=== PATIENT | female | born 1955 | race Caucasian/White ===

== ENCOUNTER 2019-07-15 08:53 | Day surgery (SDC) | payer MEDICARE, SELFPAY ==
[2019-07-15] MEDS: PROPARACAINE 0.5% OPHTH SOL 2 DROPS EYE-OP (09:44)
[2019-07-15] MEDS: CATARACT EYE COMPOUND (10 DROPS/SYRINGE) 3 DROPS EYE-OP (09:49)
[2019-07-15 09:53] VITALS: BP 132/81; PULSE 55; RESP 16; TEMP 36.6; O2SAT 98; BMI 24.7
--- NOTE | 2019-07-15 10:10 | PM.PREOP ---
Pre-operative Note Interval Note History & Physical reviewed/Exam performed by Physician: No Changes to H&P: No
--- NOTE | 2019-07-15 10:10 | PM.OP.1 ---
Operative Date/Time/Diagnoses Pre-op diagnosis: Nuclear cataract right eye Procedure & Clinicians Procedure: Cataract Surgery Same procedure as scheduled: Yes Surgeon: Mariusz Robert Anesthesia Type: MAC +/- and Sedation Operative Notes Procedure in detail: Patient brought to the operating suite. Tetracaine drops placed in the right eye. The marking instrument was used to liz the vertical and horizontal meridians. Patient was prepped and draped in sterile manner. Wire lid speculum was placed in the eye. Betadine drops were placed on the eye. This was irrigated. Lidocaine jelly was placed on the eye. A paracentesis port was created with a side-port blade. 0.1 mL 1% preservative free lidocaine was injected into the anterior chamber. The anterior chamber was deepened with viscoelastic. 2.6 mm keratome was used to create a temporal clear corneal incision. Cystotome and Utrata forceps were used to create continuous tear capsulorrhexis. Balanced salt solution was used to hydro dissect the nucleus. The phacoemulsification handpiece was inserted and the nucleus was removed using the stop and chop technique. The irrigation aspiration handpiece was inserted and the remaining cortex was removed. Anterior chamber was deepened with viscoelastic. An Singh [id number] intraocular lens with a power of 25.5 was injected into the capsular bag. Irrigation aspiration handpiece was inserted and the remaining viscoelastic was removed. The lens was rotated to the 180 degree meridian. Incision was hydrated with balanced salt solution and found to be leak free with pressure with Weck-Fabiola sponges. 0.1 mL Vigamox injected anterior chamber. 0.3 mL Kenalog 10 mg was injected subconjunctivally. Lid speculum was removed. The patient left the operating room in excellent condition. Complications: none Post-operative Condition: stable Disposition: same day surgery
[2019-07-15] MEDS: MOXIFLOXACIN INJ 5 MG/ML VIAL EYE-OP (10:22)
[2019-07-15] MEDS: TRIAMCINOLONE 50 MG/5 ML VIAL INJ (10:22)
[2019-07-15] MEDS: LIDOCAINE JELLY 2% 5 ML 1 APPLIC TOP (10:23)
[2019-07-15] MEDS: PHENYLEPHRINE/LIDOCAINE VIAL (OR) 0.2 ML EYE-OP (10:23)
[2019-07-15] MEDS: BALANCED SALT IRRIG SOLN NO.2 500 ML, EPINEPHrine 1 MG IRR (10:23)
[2019-07-15] MEDS: CHONDROIDTIN/SOD HYALURONATE 1.05 ML SYRINGE INTRAOCULA (10:23)
[2019-07-15] MEDS: TETRACAINE 0.5% OPHTH DROPS 4 ML 2 DROPS EYE-OP (10:23)
[2019-07-15 11:45] VITALS: BP 106/69; PULSE 62; RESP 16; TEMP 36.6; O2SAT 99
== END 2019-07-15 12:00 | disposition home or self-care (01) ==
LOC: OR 08:56
PROVIDERS: Visit Provider Ophthalmology
PROC: (CPT 66984; principal; 2019-07-15 10:45)
DX: H25.11 Age-related nuclear cataract, right eye (principal)
CPT/HCPCS: 66984; J0171; J2250; J3010; J3301; V2787

== ENCOUNTER 2019-07-29 08:26 | Day surgery (SDC) | payer MEDICARE, SELFPAY ==
[2019-07-29 09:21] VITALS: BMI 25.9
[2019-07-29 09:24] VITALS: BP 132/80; PULSE 53; RESP 15; TEMP 36.1; O2SAT 99
[2019-07-29] MEDS: PROPARACAINE 0.5% OPHTH SOL 2 DROPS EYE-OP (09:31)
[2019-07-29] MEDS: CATARACT EYE COMPOUND (10 DROPS/SYRINGE) 3 DROPS EYE-OP (09:31)
--- NOTE | 2019-07-29 09:58 | PM.PREOP ---
Pre-operative Note Interval Note History & Physical reviewed/Exam performed by Physician: No Changes to H&P: No
--- NOTE | 2019-07-29 09:58 | PM.OP.1 ---
Operative Date/Time/Diagnoses Pre-op diagnosis: Nuclear Cataract Left eye Post-op diagnosis: same Procedure & Clinicians Surgeon: Mariusz Robert Anesthesia Type: MAC +/- and Sedation Operative Notes Procedure in detail: Patient brought to the operating suite. Tetracaine drops placed in the left eye. Patient was prepped and draped in sterile manner. Wire lid speculum was placed in the eye. Betadine drops were placed on the eye. This was irrigated. Lidocaine jelly was placed on the eye. A paracentesis port was created with a side-port blade. 0.1 mL 1% preservative free lidocaine was injected into the anterior chamber. The anterior chamber was deepened with viscoelastic. 2.6 mm keratome was used to create a temporal clear corneal incision. Cystotome and Utrata forceps were used to create continuous tear capsulorrhexis. Balanced salt solution was used to hydro dissect the nucleus. The phacoemulsification handpiece was inserted and the nucleus was removed using the stop and chop technique. The irrigation aspiration handpiece was inserted and the remaining cortex was removed. Anterior chamber was deepened with viscoelastic. An Singh ZCB00 intraocular lens with a power of 25.0 was injected into the capsular bag. Irrigation aspiration handpiece was inserted and the remaining viscoelastic was removed. Incision was hydrated with balanced salt solution and found to be leak free with pressure with Weck-Fabiola sponges. 0.1 mL Vigamox injected anterior chamber. 0.3 mL Kenalog 10 mg was injected subconjunctivally. Lid speculum was removed. The patient left the operating room in excellent condition. Complications: none Post-operative Condition: stable Disposition: same day surgery
[2019-07-29] MEDS: PHENYLEPHRINE/LIDOCAINE VIAL (OR) 0.2 ML EYE-OP (10:10)
[2019-07-29] MEDS: TRIAMCINOLONE 50 MG/5 ML VIAL INJ (10:10)
[2019-07-29] MEDS: MOXIFLOXACIN 0.5% OPHTH 60 DROPS/BOTTLE DROPS EYE-BOTH (10:11)
[2019-07-29] MEDS: LIDOCAINE JELLY 2% 5 ML 1 APPLIC TOP (10:11)
[2019-07-29] MEDS: BALANCED SALT IRRIG SOLN NO.2 500 ML, EPINEPHrine 1 MG IRR (10:11)
[2019-07-29] MEDS: TETRACAINE 0.5% OPHTH DROPS 4 ML 2 DROPS EYE-OP (10:11)
[2019-07-29] MEDS: CHONDROIDTIN/SOD HYALURONATE 1.05 ML SYRINGE INTRAOCULA (10:11)
[2019-07-29 10:31] VITALS: BP 110/70; PULSE 55; RESP 14; TEMP 36.3; O2SAT 98
== END 2019-07-29 10:44 ==
LOC: OR 08:28
PROVIDERS: Visit Provider Ophthalmology
PROC: (CPT 66984; principal; 2019-07-29 10:15)
DX: H25.12 Age-related nuclear cataract, left eye (principal)
CPT/HCPCS: 66984; J0171; J2250; J3010; J3301

== ENCOUNTER → 2020-04-01 14:08 | Outpatient (CLI) | payer MEDICARE, SELFPAY | PROVIDERS: PCP Registered Nurse; Referring Provider Registered Nurse; Visit Provider Registered Nurse | DX: M85.88 Other specified disorders of bone density and structure, other site (principal); Z78.0 Asymptomatic menopausal state; Z82.62 Family history of osteoporosis | CPT/HCPCS: 77080 ==

== ENCOUNTER → 2020-07-02 09:36 | Outpatient (CLI) | payer MEDICARE, SELFPAY ==
--- NOTE | 2020-07-02 | DI.MRI.S_ITS ---
PROCEDURE: MR SHOULDER RT WO CON INDICATIONS: Unspecified rotator cuff tear or rupture TECHNIQUE: Noncontrast oblique coronal T2 fast spin echo with fat saturation, oblique sagittal T1 spin echo and T2 fast spin echo with fat saturation, axial T1 spin echo and T2 fast spin echo with fat saturation through the shoulder. COMPARISON: None. FINDINGS: Image quality: Excellent. Rotator cuff: Mild supraspinatus tendinopathy and low-grade bursal surface fraying. Interstitial tearing of the infraspinatus at the musculotendinous junction, and there is mild bursal surface fraying. Teres minor appears intact. Subscapularis tendon appears grossly intact. Isolated atrophy of the teres minor muscle is seen. No definite focal signal change present within the quadrilateral space. Bones and bursae: No bone marrow contusions or fractures. Moderate hypertrophic acromioclavicular joint degeneration. Acromion demonstrates conventional anatomy, without an os acromiale. Severe subacromial-subdeltoid bursitis. Large joint effusion is present. There are low signal foci present along the anterior cortex of the surgical neck of the humerus measuring approximately 1.2 x 0.8 cm on axial image 16/6. Capsule and soft tissues: Labrum: Ill-defined chronic appearing tear or advanced degenerative fraying of the anterior and posterior labrum, and there are small paralabral cysts adjacent to the anterior glenoid. Incidentally noted sublabral foramen. Long head of the biceps tendon intact. The rotator interval appears normal, without fibrosis. Coracohumeral ligament intact. IMPRESSION: Mild supraspinatus tendinopathy and low-grade bursal surface fraying Infraspinatus interstitial tearing, and mild bursal surface fraying. No full-thickness rotator cuff tear identified. Isolated atrophy of the teres minor muscle, of unclear etiology. Severe subacromial-subdeltoid bursitis. Low signal intensity foci involving the anterior subacromial-subdeltoid bursa, which could represent loose bodies versus calcific bursitis. Further evaluation with dedicated radiographs is recommended. Ill-defined, macerated appearing tear of the anterior and posterior labrum, with small paralabral cysts adjacent to the anterior inferior glenoid. This finding probably chronic/degenerative. Dictated by: Ender Araujo M.D. on 07/02/2020 at 11:30 Approved by: Ender Araujo M.D. on 07/02/2020 at 12:00
== END ==
PROVIDERS: PCP Registered Nurse; Referring Provider Registered Nurse; Visit Provider Registered Nurse
DX: M75.111 Incomplete rotator cuff tear or rupture of right shoulder, not specified as traumatic (principal); S43.491A Other sprain of right shoulder joint, initial encounter; M19.011 Primary osteoarthritis, right shoulder; M25.411 Effusion, right shoulder
CPT/HCPCS: 73221

== ENCOUNTER → 2022-07-20 11:27 | Outpatient (CLI) | payer MEDICARE, SELFPAY | PROVIDERS: PCP Registered Nurse; Referring Provider Registered Nurse; Visit Provider Registered Nurse | DX: M81.0 Age-related osteoporosis without current pathological fracture (principal); Z78.0 Asymptomatic menopausal state | CPT/HCPCS: 77080 ==

== ENCOUNTER 2022-08-28 21:54 | Emergency (ER) | payer MEDICARE, SELFPAY ==
[2022-08-28] VITALS (11 sets, daily range): BP systolic 119–146; BP diastolic 63–75; PULSE 60–78; RESP 15–17; TEMP 36.6; O2SAT 97–100; BMI 23.9
--- NOTE | 2022-08-28 22:09 | DI.RAD.S_ITS ---
PROCEDURE: XR CHEST 1V INDICATIONS: not feeling right TECHNIQUE: One view of the chest was acquired. COMPARISON: None. FINDINGS: Surgical changes and devices: None. Lungs and pleura: Lungs are clear. No pleural effusions or pneumothorax. Mediastinum: Mediastinal contours appear normal. Heart size is normal. Bones and chest wall: No suspicious bony lesions. Overlying soft tissues appear unremarkable. IMPRESSION: 1. No acute cardiopulmonary disease. Dictated by: Joaquín Barnes M.D. on 08/29/2022 at 0:23 Approved by: Joaquín Barnes M.D. on 08/29/2022 at 0:23
[2022-08-28 22:18] LABS: Add Manual Diff / Slide Review NO; Basophils Absolute Auto 100 /uL (0-100); Basophils Percent Auto 1.1 % (0-2); Eosinophils Absolute Auto 200 /uL (0-450); Hematocrit 36.5 % (36-46); Hemoglobin 12.5 g/dL (12.0-16.0); Lymphocytes Absolute Auto 1100 /uL (1100-4500); Lymphocytes Percent Auto 19.5 % (25-40); Mean Corpuscular HGB Conc 34.3 % (30-36); Mean Corpuscular Hemoglobin 30.7 PG (26-34); Mean Corpuscular Volume 89.8 fL (80-100); Monocytes Absolute Auto 300 /uL (0-900); Monocytes Percent Auto 6.2 % (3-14); Neutrophils Absolute Auto 3900 /uL (1500-7000); Neutrophils Percent Auto 70.2 % (50-75); Platelet Count 176 X10^3/uL (150-400); Red Blood Cell Count 4.07 X10^6/uL (4.0-5.2); Red Cell Distribution Width 13.4 % (11.6-14.8); White Blood Cell Count 5.5 X10^3/uL (4.5-11.0)
[2022-08-28] MEDS: SODIUM CHLORIDE 0.9% 1,000 ML 200 ML IV (22:18)
[2022-08-28 22:23] LABS: Lactate (Lactic Acid) 1.5 mmol/L (0.7-2.1)
[2022-08-28 22:24] LABS: Alanine Aminotransferase 23 IU/L (<35); Albumin Globulin Ratio 1.4 (1.0-2.8); Alkaline Phosphatase 57 U/L (38-126); Aspartate Aminotransferase 25 IU/L (14-36); BUN Creatinine Ratio 17.4 (6-22); Bilirubin Total 0.4 mg/dL (0.2-1.3); Blood Urea Nitrogen 15 mg/dL (7-17); Calcium 9.1 mg/dL (8.4-10.2); Carbon Dioxide 28 mmol/L (22-32); Chloride 105 mmol/L (98-107); Creatine Kinase 85 U/L (30-135); Estimated Glomerular Filt Rate > 60 mL/min (>60); Globulin 2.8 g/dL (1.7-4.1); Glucose 126 mg/dL (80-110); HEMOLYSIS < 15 (0-50); Potassium 3.6 mmol/L (3.4-5.1); Sodium 139 mmol/L (137-145); Total Protein 6.8 g/dL (6.3-8.2)
[2022-08-28 22:36] LABS: Troponin I < 0.012 ng/mL (0.01-0.034)
[2022-08-28 22:40] LABS: Procalcitonin < 0.03 ng/mL (<0.5)
--- NOTE | 2022-08-28 22:43 | DI.CT.S_ITS ---
PROCEDURE: CT ANGIO HEAD AND NECK INDICATIONS: dizzy resolved with vision changes TECHNIQUE: Pre-contrast 4.5 mm thick sections acquired from the foramen magnum to the vertex. After the administration of intravenous contrast, 1 mm thick sections acquired from the aortic arch through the [place] of [place]. Post-contrast 4.5 mm thick sections then re-acquired from the foramen magnum to the vertex. 3-dimensional pdtrytf-lcdheddnt-bmfotoqidn (MIP) and/or volume rendering reformats were acquired of the central intracranial vasculature and neck separately. For radiation dose reduction, the following was used: automated exposure control, adjustment of mA and/or kV according to patient size. COMPARISON: None. FINDINGS: Image quality: Excellent. BRAIN: CSF spaces: Basal cisterns are patent. No extra-axial fluid collections. Ventricles are normal in size and shape. Brain: No intracranial hemorrhage, mass, or mass effect. Scales-white matter interface appears preserved. No abnormal intracranial enhancement. Skull and face: Calvarium and facial bones appear intact, without suspicious lesions. Orbits appear normal. Sinuses: Sinuses and mastoids are clear. HEAD CT ANGIOGRAPHY: Anterior circulation: Intracranial internal carotid arteries are normal in size and appear patent bilaterally. There is mild atherosclerotic calcification along the cavernous segments of the internal carotid arteries. The paired anterior cerebral arteries appear patent bilaterally. The anterior communicating artery also appears patent. The middle cerebral arteries appear patent bilaterally. No high-grade stenosis, occlusion, or filling defects. No cerebral aneurysms identified. Posterior circulation: Visualized portions of the vertebral arteries demonstrate normal caliber, and join to form a patent basilar artery. The posterior cerebral arteries appears patent bilaterally. No high-grade stenosis, occlusion, or filling defects. No cerebral aneurysms identified. NECK CT ANGIOGRAPHY: Carotid system: The great vessels demonstrate a conventional anatomy as they arise from the aortic arch. The origins of the common carotid arteries appear patent. The common carotid arteries demonstrate normal caliber and courses. The bifurcation regions are both widely patent. The internal carotid arteries demonstrate normal calibers and courses. Posterior circulation: The origins of the vertebral arteries both appear patent. The more superior extracranial portions of both vertebral arteries also demonstrate normal courses and calibers. They join to form a patent basilar artery. Soft tissues: Visualized neck soft tissues demonstrate no suspicious abnormalities. Bones: No suspicious bony lesions. Visualized cervical spine demonstrates straightening of the cervical lordosis. There is mild degenerative disc disease and facet joint arthropathy. IMPRESSION: 1. No acute intracranial abnormality. 2. No high-grade stenosis or occlusion of the central intracranial arteries. 3. No high-grade stenosis or occlusion of the head and neck arteries. Any quantitative measurements of stenosis were performed using NASCET criteria. Dictated by: Joaquín Barnes M.D. on 08/29/2022 at 0:19 Approved by: Joaquín Barnes M.D. on 08/29/2022 at 0:23
--- NOTE | 2022-08-28 22:43 | ED.DIZZY ---
HPI - Dizziness General Chief Complaint: Dizziness Stated Complaint: Feel funny Time Seen by Provider: 08/28/22 22:09 Source: patient and EMS Mode of arrival: EMS History of Present Illness HPI Narrative: Patient is a healthy 67-year-old female who reports feeling well and dizzy. She said she was sitting at dinner she felt like she was kind of out of it and numb all over she felt like she was having some floaters and both of her eyes and then the headache came on. She got up from the table and went to lay down on the couch. She was feeling a little bit dizzy she did not pass out. She denies any chest pain or palpitations. She says this happened to her 3 other times in her life she was never evaluated for before. EMS reports that she was mildly hypotensive when she arrived. She said she was in her normal state of health earlier this morning and this evening. She denies fever chills no nausea vomiting or any other symptoms. She denies any weakness or loss of vision. She does have a mild headache now but not bad. She says is not typical for her migraines. Overall feeling significantly better. Patient admits to drinking alcohol but not this evening. Related Data Home Medications Medication Instructions Recorded Confirmed escitalopram oxalate 10 mg tablet 10 mg PO DAILY 07/15/19 07/29/19 Allergies Allergy/AdvReac Type Severity Reaction Status Date / Time Latex, Natural Rubber Allergy Intermediate Rash Verified 07/29/19 09:12 codeine AdvReac Intermediate Nausea Verified 07/29/19 09:12 Review of Systems Review of Systems Narrative: GENERAL: Denies chills, fatigue, malaise, fever, sweats, travel HEENT: Denies sinus pain, ear pain, sore throat, difficulty swallowing, neck pain RESPIRATORY: Denies dyspnea, cough, wheezing, hemoptysis, sputum. CARDIOVASCULAR: Denies chest pain, palpitations, orthopnea, edema GASTROINTESTINAL: Denies nausea, vomiting, abdominal pain, diarrhea, constipation, melena. : Denies dysuria, frequency, incontinence, hematuria, urinary retention, flank pain. MUSCULOSKELETAL: Denies weakness, joint pain, or bony pain SKIN: No rash, no erythema, no pruritus NEUROLOGIC: See HPI PSYCHIATRIC: No concerning psychosocial issues. 12 point review of systems is negative except for those stated above and HPI Patient History Social History household members: spouse Smoking Status: Never smoker Smoking Status: Never smoker alcohol intake frequency: 0-2 drinks per day Alcohol type: wine Substance Use Type: does not use Exam Initial Vital Signs Initial Vital Signs: Vital Signs Pulse Rate 63 08/28/22 22:02 Pulse Oximetry 98 08/28/22 22:02 Oxygen Delivery Method 08/28/22 22:02 GENERAL: Alert pleasant 67-year-old female no acute distress and in no acute distress. HEENT: Head atraumatic,EOMI, pupils reactive, face symmetric, no peripheral visual loss moist mucous membranes CARDIOVASCULAR: Regular rate and rhythm without murmurs, rubs or gallops. RESPIRATORY: Breath sounds equal bilaterally, no wheezes rales or rhonchi. ABDOMEN: Soft, nontender. Normoactive bowel sounds all 4 quadrants. No guarding or rebound. EXTREMITIES: Normal range of motion, no clubbing or edema. Neurovascularly intact NEUROLOGICAL: Alert and oriented x4.Normal gait and speech. Cranial nerves II through XII grossly intact. Good znhnpy-[id number], good snpu-tr-vwzo, strength equal bilaterally, no dysarthria or aphasia, sensation in tact to soft touch bilaterally, no visual changes, no facial droop SKIN: Warm, dry, no laceration, no petechiae, no rashes or lesions. Scores NIH Stroke Scale Level of Conciousness: Alert, keenly responsive Ask month/age: Answers both questions correctly. Open/close eyes, close hand: Performs both tasks correctly Best gaze horizontal: Normal Visual ramirez: No visual loss Facial palsy: Normal symetrical movement Left arm drift: No drift for full 10 sec Right arm drift: No drift for full 10 sec Left leg drift: No drift for full 5 sec Right leg drift: No drift for full 5 sec Limb ataxia: Absent Sensory on face/arms/legs: Normal, no sensory loss Best language: No aphasia, normal Dysarthria: Normal Extinction or inattention: No abnormality Total NIH Stroke scale score: 0 Course Orders Ordered: ED Orders 08/28/22 22:00 Complete Blood Count AUTO DIFF Stat Comprehensive Metabolic Panel Stat ETOH [Ethanol (ETOH)] Stat Lactate (Lactic Acid) Stat Procalcitonin Stat Troponin & CK Cardiac Panel Stat 08/28/22 22:09 XR chest 1V Stat 08/28/22 22:10 EKG-12 Lead Stat 08/28/22 22:28 Covid-19 + FLU A/B + RSV - PCR Stat 08/28/22 22:43 CT angio head and neck Stat 08/28/22 23:21 Blood Culture Stat Discontinued Medications Sodium Chloride (Normal Saline 0.9%) 1,000 mls @ 200 mls/hr IV CONT CHIKA Last Infusion: 08/29/22 01:08 Dose: 0 mls/hr Documented By: Infusion: 08/29/22 01:08 Dose: 0 mls/hr Documented By: Admin: 08/28/22 22:18 Dose: 200 mls/hr Documented By: XANDER Vital Signs Vital signs: Vital Signs - 8 hr 08/28/22 22:04 08/28/22 22:02 08/28/22 22:15 Temperature 97.9 F Pulse Rate 60 63 63 Respiratory Rate 15 17 Blood Pressure 119/65 Pulse Oximetry 99 98 99 Oxygen Delivery Method Room Air Room Air Room Air 08/28/22 22:15 08/28/22 22:30 08/28/22 22:31 Temperature Pulse Rate 75 Respiratory Rate Blood Pressure 137/63 146/64 H Pulse Oximetry 99 Oxygen Delivery Method Room Air 08/28/22 22:31 08/28/22 22:45 08/28/22 22:45 Temperature Pulse Rate 71 62 Respiratory Rate Blood Pressure 140/67 Pulse Oximetry 97 100 Oxygen Delivery Method Room Air 08/28/22 23:01 08/28/22 23:03 08/28/22 23:03 Temperature Pulse Rate 78 71 Respiratory Rate Blood Pressure 129/70 Pulse Oximetry 98 100 Oxygen Delivery Method 08/28/22 23:15 08/28/22 23:15 08/28/22 23:30 Temperature Pulse Rate 74 Respiratory Rate Blood Pressure 134/65 119/73 Pulse Oximetry 100 Oxygen Delivery Method 08/28/22 23:30 08/28/22 23:54 08/28/22 23:54 Temperature Pulse Rate 68 66 Respiratory Rate Blood Pressure 124/75 Pulse Oximetry 98 98 Oxygen Delivery Method 08/29/22 00:00 08/29/22 00:00 08/29/22 00:16 Temperature Pulse Rate 102 H 84 Respiratory Rate Blood Pressure 115/75 Pulse Oximetry 98 97 Oxygen Delivery Method 08/29/22 00:16 08/29/22 00:30 08/29/22 00:37 Temperature Pulse Rate 72 65 Respiratory Rate Blood Pressure 165/100 H Pulse Oximetry 98 98 Oxygen Delivery Method 08/29/22 00:37 08/29/22 00:45 08/29/22 00:45 Temperature Pulse Rate 60 Respiratory Rate Blood Pressure 124/66 111/62 Pulse Oximetry 97 Oxygen Delivery Method 08/29/22 01:00 08/29/22 01:00 Temperature Pulse Rate 63 Respiratory Rate Blood Pressure 115/65 Pulse Oximetry 94 Oxygen Delivery Method MDM - Dizziness Lab Data Result diagrams: 08/28/22 22:00 08/28/22 22:00 Labs: Lab Results 08/28/22 08/28/22 08/28/22 Range/Units 22:00 22:00 22:00 WBC 5.5 (4.5-11.0) X10^3/uL RBC 4.07 (4.0-5.2) X10^6/uL Hgb 12.5 (12.0-16.0) g/dL Hct 36.5 (36-46) % MCV 89.8 (80-100) fL MCH 30.7 (26-34) PG MCHC 34.3 (30-36) % RDW 13.4 (11.6-14.8) % Plt Count 176 (150-400) X10^3/uL Neut % (Auto) 70.2 (50-75) % Lymph % (Auto) 19.5 L (25-40) % [place] % (Auto) 6.2 (3-14) % Eos % (Auto) 3.0 (2-4) % Baso % (Auto) 1.1 (0-2) % Neut # (Auto) 3900 (6515-5362) /uL Lymph # (Auto) 1100 (0798-2635) /uL [place] # (Auto) 300 (0-900) /uL Eos # (Auto) 200 (0-450) /uL Baso # (Auto) 100 (0-100) /uL Sodium 139 (137-145) mmol/L Potassium 3.6 (3.4-5.1) mmol/L Chloride 105 (98-107) mmol/L Carbon Dioxide 28 (22-32) mmol/L BUN 15 (7-17) mg/dL Creatinine 0.86 (0.52-1.04) mg/dL Estimated GFR > 60 (>60) mL/min BUN/Creatinine Ratio 17.4 (6-22) Glucose 126 H (80-110) mg/dL Lactate 1.5 (0.7-2.1) mmol/L Calcium 9.1 (8.4-10.2) mg/dL Total Bilirubin 0.4 (0.2-1.3) mg/dL AST 25 (14-36) IU/L ALT 23 (<35) IU/L Alkaline Phosphatase 57 (38-126) U/L Total Creatine Kinase 85 (30-135) U/L CK-MB (CK-2) TNP CK-MB (CK-2) Rel Index TNP Troponin I < 0.012 (0.01-0.034) ng/mL Total Protein 6.8 (6.3-8.2) g/dL Albumin 4.0 (3.5-5.0) g/dL Globulin 2.8 (1.7-4.1) g/dL Albumin/Globulin Ratio 1.4 (1.0-2.8) Procalcitonin < 0.03 (<0.5) ng/mL Ethyl Alcohol ( - 10) mg/dL SARS-CoV-2 (PCR) (Negative) Influenza A (RT-PCR) (NEGATIVE) Influenza B (RT-PCR) (NEGATIVE) RSV (PCR) (Negative) 08/28/22 08/28/22 Range/Units 22:00 22:28 WBC (4.5-11.0) X10^3/uL RBC (4.0-5.2) X10^6/uL Hgb (12.0-16.0) g/dL Hct (36-46) % MCV (80-100) fL MCH (26-34) PG MCHC (30-36) % RDW (11.6-14.8) % Plt Count (150-400) X10^3/uL Neut % (Auto) (50-75) % Lymph % (Auto) (25-40) % [place] % (Auto) (3-14) % Eos % (Auto) (2-4) % Baso % (Auto) (0-2) % Neut # (Auto) (8037-2814) /uL Lymph # (Auto) (7499-6770) /uL [place] # (Auto) (0-900) /uL Eos # (Auto) (0-450) /uL Baso # (Auto) (0-100) /uL Sodium (137-145) mmol/L Potassium (3.4-5.1) mmol/L Chloride (98-107) mmol/L Carbon Dioxide (22-32) mmol/L BUN (7-17) mg/dL Creatinine (0.52-1.04) mg/dL Estimated GFR (>60) mL/min BUN/Creatinine Ratio (6-22) Glucose (80-110) mg/dL Lactate (0.7-2.1) mmol/L Calcium (8.4-10.2) mg/dL Total Bilirubin (0.2-1.3) mg/dL AST (14-36) IU/L ALT (<35) IU/L Alkaline Phosphatase (38-126) U/L Total Creatine Kinase (30-135) U/L CK-MB (CK-2) CK-MB (CK-2) Rel Index Troponin I (0.01-0.034) ng/mL Total Protein (6.3-8.2) g/dL Albumin (3.5-5.0) g/dL Globulin (1.7-4.1) g/dL Albumin/Globulin Ratio (1.0-2.8) Procalcitonin (<0.5) ng/mL Ethyl Alcohol < 10 ( - 10) mg/dL SARS-CoV-2 (PCR) Negative (Negative) Influenza A (RT-PCR) Flu a negative (NEGATIVE) Influenza B (RT-PCR) Flu b negative (NEGATIVE) RSV (PCR) Negative (Negative) Urine Dip Bedside Urine Glucose Negative Bedside Urine Bilirubin - Negative Bedside Urine Ketone - Negative Urine Specific [place] 1.010 Bedside Urine Occult Blood - Negative Bedside Urine pH 7.5 Bedside Urine Protein - Negative Bedside Urine Urobilinogen - Negative Bedside Urine Nitrite - Negative Bedside Urine Leukocytes - Negative Esterase Imaging Data CTA - brain/neck: Radiologist's Impression: Signed Patient: Ana Porter MR#: [id number] : 1955 Acct:[id number] Age/Sex: 67 / F Date of Service: 08/28/22 Loc: ED Accession Number: [id number] ?? Procedure: CT angio head and neck Ordering Provider: Mary Zavala D.O. PROCEDURE:? CT ANGIO HEAD AND NECK ? INDICATIONS:? dizzy resolved with vision changes ? TECHNIQUE:? Pre-contrast 4.5 mm thick sections acquired from the foramen magnum to the vertex.? After the administration of intravenous contrast, 1 mm thick sections acquired from the aortic arch through the [place] of [place].? Post-contrast 4.5 mm thick sections then re-acquired from the foramen magnum to the vertex.? 3-dimensional pbtqwut-mavuzkgdb-vngtzncmss (MIP) and/or volume rendering reformats were acquired of the central intracranial vasculature and neck separately. For radiation dose reduction, the following was used:? automated exposure control, adjustment of mA and/or kV according to patient size.? ? COMPARISON:? None. ? FINDINGS:? Image quality:? Excellent.? ? BRAIN:? CSF spaces:? Basal cisterns are patent.? No extra-axial fluid collections.? Ventricles are normal in size and shape.? ? Brain:? No intracranial hemorrhage, mass, or mass effect.? Scales-white matter interface appears preserved.? No abnormal intracranial enhancement.? ? Skull and face:? Calvarium and facial bones appear intact, without suspicious lesions.? Orbits appear normal.? ? Sinuses:? Sinuses and mastoids are clear.? ? HEAD CT ANGIOGRAPHY:? Anterior circulation:? Intracranial internal carotid arteries are normal in size and appear patent bilaterally.? There is mild atherosclerotic calcification along the cavernous segments of the internal carotid arteries.? The paired anterior cerebral arteries appear patent bilaterally.? The anterior communicating artery also appears patent. The middle cerebral arteries appear patent bilaterally.? No high-grade stenosis, occlusion, or filling defects.? No cerebral aneurysms identified. ? Posterior circulation:? Visualized portions of the vertebral arteries demonstrate normal caliber, and join to form a patent basilar artery.? The posterior cerebral arteries appears patent bilaterally.? No high-grade stenosis, occlusion, or filling defects.? No cerebral aneurysms identified. ? NECK CT ANGIOGRAPHY:? Carotid system:? The great vessels demonstrate a conventional anatomy as they arise from the aortic arch.? The origins of the common carotid arteries appear patent.? The common carotid arteries demonstrate normal caliber and courses.? The bifurcation regions are both widely patent.? The internal carotid arteries demonstrate normal calibers and courses.? ? Posterior circulation:? The origins of the vertebral arteries both appear patent.? The more superior extracranial portions of both vertebral arteries also demonstrate normal courses and calibers.? They join to form a patent basilar artery.? ? Soft tissues:? Visualized neck soft tissues demonstrate no suspicious abnormalities.? ? Bones:? No suspicious bony lesions.? Visualized cervical spine demonstrates straightening of the cervical lordosis.? There is mild degenerative disc disease and facet joint arthropathy. ? IMPRESSION:? ? 1.? No acute intracranial abnormality. ? 2. No high-grade stenosis or occlusion of the central intracranial arteries. ? 3. No high-grade stenosis or occlusion of the head and neck arteries.? ? Any quantitative measurements of stenosis were performed using NASCET criteria.? ? ? Dictated by: Joaquín Barnes M.D. on 08/29/2022 at 0:19 ?? Chest x-ray: Radiologist's Impression: nt: Ana Porter MR#: [id number] : 1955 Acct:[id number] Age/Sex: 67 / F Date of Service: 08/28/22 Loc: ED Accession Number: [id number] ?? Procedure: XR chest 1V Ordering Provider: Mary Zavala D.O. PROCEDURE:? XR CHEST 1V ? INDICATIONS:? not feeling right ? TECHNIQUE:? One view of the chest was acquired.? ? COMPARISON:? None. ? FINDINGS:? ? Surgical changes and devices:? None.? ? Lungs and pleura:? Lungs are clear.? No pleural effusions or pneumothorax.? ? Mediastinum:? Mediastinal contours appear normal.? Heart size is normal.? ? Bones and chest wall:? No suspicious bony lesions.? Overlying soft tissues appear unremarkable.? ? IMPRESSION:? ? 1.? No acute cardiopulmonary disease. ? ? ? Dictated by: Joaquín Barnes M.D. on 08/29/2022 at 0:23 ? ? ECG Data Interpretation: Normal sinus rhythm rate 57 IL interval 158 QRS [address] changes no to give inversion MDM Narrative Medical decision making narrative: My at this time patient has negative NIH stroke scale. She did not pass out symptoms really are not concerning for stroke. She has some floaters in both eyes with mild headache but denies severe headache or migraine. Blood work is overall reassuring sepsis has been ruled out blood pressure has been stable she received IV fluids. This is happened to are few other times. She does admit to drinking alcohol is however her alcohol level is negative today. At this time she is ambulatory no need for admission or any further workup. Unlikely to be TIA or CVA at this time. Possibly orthostatic hypotension for an unknown reason. She really does not take any medication there is no sign of dehydration she has not had any loss of fluid with diarrhea or vomiting. At this time patient is happy to go home. Discharge Plan Departure Patient Disposition: Home Clinical Impression: Dizziness Instructions: DI for Dizziness-Nonvertigo Activity Restrictions/Additional Instructions: *You have been diagnosed with dizziness *What to do: At this time blood work and scans are reassuring today no sign of infection. *Continue to take medications as directed *Follow up with your primary care provider in 2-3 days or call [phone] *Return to ER if you should have persistent dizziness chest pain shortness of breath fever chills or any new, worsening or concerning symptoms Prescriptions: No Action escitalopram oxalate 10 mg Tablet 10 mg PO DAILY Referrals: Eileen Tapia ARNP [Primary Care Provider] - Visit Report Forms: Patient Portal/API
[2022-08-28 23:23] LABS: Influenza A - CEPHEID Flu A NEGATIVE (NEGATIVE); Influenza B - CEPHEID Flu B NEGATIVE (NEGATIVE); Respiratory Syncytial Virus Negative (Negative)
[2022-08-28 23:28] LABS: COVID-19 CEPHEID 4-PLEX PCR Negative (Negative)
[2022-08-29] VITALS: BP 115/75; PULSE 102; O2SAT 98
[2022-08-29 00:10] LABS: Ethanol (ETOH) < 10 mg/dL
[2022-08-29 00:16] VITALS: BP 165/100; PULSE 84; O2SAT 97
[2022-08-29 00:30] VITALS: PULSE 72; O2SAT 98
[2022-08-29 00:37] VITALS: BP 124/66; PULSE 65; O2SAT 98
[2022-08-29 00:45] VITALS: BP 111/62; PULSE 60; O2SAT 97
[2022-08-29 01:00] VITALS: BP 115/65; PULSE 63; O2SAT 94
== END 2022-08-29 01:10 | disposition home or self-care (01) ==
PROVIDERS: Emergency Provider Emergency Medicine; PCP Registered Nurse
DX: R42 Dizziness and giddiness (principal); I95.9 Hypotension, unspecified; R07.9 Chest pain, unspecified; Z20.822 Contact with and (suspected) exposure to COVID-19
CPT/HCPCS: 0241U; 36415; 70496; 70498; 71045; 80053; 80320; 81003; 82550; 83605; 84145; 84484; 85025; 87040; 93005; 93010; 99284; Q9967

== ENCOUNTER → 2022-09-28 11:13 | Outpatient (CLI) | payer MEDICARE, SELFPAY ==
--- NOTE | 2022-09-28 12:21 | DI.MRI.S_ITS ---
PROCEDURE: MR LUMBAR SPINE WO CON INDICATIONS: spondylosis without myelopathy or radiculopathy TECHNIQUE: Noncontrast sagittal T1 spin echo and T2 fast echo, sagittal STIR, and T2 fast spin echo through the lumbar spine. In cases with scoliosis, additional coronal T2 fast spin echo may be performed. COMPARISON: None. FINDINGS: Image quality: Excellent. Alignment and Curvature: There is normal bony alignment. Bone Marrow: Marrow is of normal overall signal. No acute vertebral body compression fractures. A kiiu-xv-hvhvlzcn old appearing wedge compression fracture is noted involving L1. Spinal Cord: Conus medullaris terminates at the L1 level. Visualized cord demonstrates normal signal and size. Paraspinous Soft Tissues: No paravertebral masses. T12-L1: There is a mild diffuse disc bulge present without evidence for central canal or neural foraminal stenosis. L1-L2: There is a mild diffuse disc bulge present causing some qdpn-[id number] left-sided neural foraminal stenosis. No central canal stenosis. L2-L3: There is a small to moderate-sized broad-based disc protrusion present most prominent in the left paracentral location. This causes some mild encroachment on the left lateral recess region and [id number] left-sided neural foraminal stenosis. No central canal stenosis. L3-L4: There is a small broad-based disc protrusion causing moderate bilateral neural foraminal stenosis. No central canal stenosis. L4-L5: There is a mild diffuse disc bulge present causing mild bilateral neural foraminal stenosis and in conjunction with ligamentum flavum buckling and facet degenerative change causes a mild to moderate degree of central canal stenosis. L5-S1: Normal appearance. IMPRESSION: 1. Degenerative changes noted throughout the patient's lumbar spine as described above on a level by level basis with the L4-L5 level being most severely affected. 2. Yjim-hq-zuinmqug old appearing wedge compression fracture involving L1. 3. 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 Dictated by: Jeff Ortiz M.D. on 09/28/2022 at 14:17 Approved by: Jeff Ortiz M.D. on 09/28/2022 at 14:24
== END ==
PROVIDERS: PCP Registered Nurse; Referring Provider Registered Nurse; Visit Provider Registered Nurse
DX: M47.816 Spondylosis without myelopathy or radiculopathy, lumbar region (principal); G96.191 Perineural cyst; M48.56XS Collapsed vertebra, not elsewhere classified, lumbar region, sequela of fracture
CPT/HCPCS: 72148